=== PATIENT | male | born 1965 | race Caucasian/White ===

== ENCOUNTER 2024-08-31 21:39 | Emergency (ER) | payer OTHER ==
[~2024-08-31] VITALS: Ht 182.9 cm; Wt 89.4 kg
[2024-08-31 21:53] VITALS: PULSE 67; RESP 18; TEMP 97.8
[2024-08-31] MEDS ORDERED: KETOROLAC TROMETHAMINE 30 MG/ML VIAL IV STA (22:19)
[2024-08-31] MEDS ORDERED: FENTANYL CITRATE/PF 100MCG/2 ML INJ IV ONE (22:30)
[2024-08-31] MEDS: KETOROLAC TROMETHAMINE 60 MG/2 ML VIAL IM ONE (23:12)
[2024-08-31] MEDS: FENTANYL CITRATE/PF 100MCG/2 ML INJ IJ ONE (23:12)
[2024-08-31] MEDS ORDERED: KETOROLAC TROME10 MG PO (23:24)
[2024-08-31] MEDS ORDERED: CYCLOBENZAPRINE5 MG PO (23:25)
[2024-08-31 23:40] VITALS: BP 140/74; PULSE 68; RESP 18; TEMP 98; O2SAT 97
== END 2024-08-31 23:40 | disposition home or self-care (01) ==
LOC: FSED 21:46
DX: M54.12 Radiculopathy, cervical region (principal); M25.511 Pain in right shoulder; M79.631 Pain in right forearm; G20.A1 Parkinson's disease without dyskinesia, without mention of fluctuations; M54.50 Low back pain, unspecified; E78.00 Pure hypercholesterolemia, unspecified; J45.909 Unspecified asthma, uncomplicated
CPT/HCPCS: 85379; 96372; 99283; J1885; J3010